=== PATIENT | male | born 1965 | race African-American/Black ===

== ENCOUNTER 2019-11-15 00:45 | Emergency (ER) | payer MEDICAID ==
[~2019-11-15] VITALS: Ht 182.9 cm; Wt 70.0 kg
[2019-11-15] MEDS ORDERED: SODIUM CHLORIDE 0.9% 1,000 ML IV ONE (03:15)
[2019-11-15 03:25] LABS: BASOPHILS % 0.4 % (0.0-2.0); EOSINOPHILS % 0.4 % (0.0-5.0); HEMATOCRIT. 36.7 % (42.0-52.0); HEMOGLOBIN. 12.6 g/dL (14.0-18.0); LYMPHOCYTES % 11.8 % (20.0-50.0); MEAN PLATELET VOLUME 8.3 fl (7.4-10.4); MONOCYTES % 4.4 % (2.0-8.0); PLATELET 219 x1000/uL (130-400); RED BLOOD CELL COUNT 3.49 mill/uL (4.7-6.1); RED CELL DISTRIBUTION WIDTH 13.2 % (11.6-14.6)
[2019-11-15 03:33] LABS: CHLORIDE 107 mEq/L (98-107)
[2019-11-15 03:38] LABS: ETHANOL BLOOD < 10 mg/dL
[2019-11-15] MEDS ORDERED: PHENYTOIN SODIUM EXTENDED 100MG CAPSULE PO ONE (04:30)
[2019-11-15 15:30] VITALS: BP 108/73
== END 2019-11-15 18:51 | disposition home or self-care (01) ==
LOC: ER 00:45
DX: R56.9 Unspecified convulsions (principal); Z59.0 Homelessness
CPT/HCPCS: 36415; 80053; 80185; 80320; 82962; 85025; 96360; 96361; 99285; J7030; G0480

== ENCOUNTER 2021-06-14 23:39 | Emergency (ER) | payer MEDICAID ==
[~2021-06-14] VITALS: Ht 175.3 cm; Wt 61.0 kg
[2021-06-15 00:34] VITALS: BP 132/82
== END 2021-06-15 01:39 | disposition home or self-care (01) ==
LOC: ER 23:39
DX: K13.79 Other lesions of oral mucosa (principal); F17.290 Nicotine dependence, other tobacco product, uncomplicated; R56.9 Unspecified convulsions
CPT/HCPCS: 99281